=== PATIENT | female | born 1985 | race Caucasian/White ===

== ENCOUNTER 2016-09-08 13:04 | Emergency (ER) | payer OTHER ==
[~2016-09-08] VITALS: Ht 170.2 cm; Wt 91.6 kg
[~2016-09-08 13:04] MED LIST: ACULAR 3 ML3 ML OPH; BENZONATATE100 MG PO; CLEOCIN HCL300 MG PO; CONZIP100 MG PO; DOXYCYCLINE MO100 MG PO; FLEXERIL10 MG PO; GOOD SENSE IBU200 MG PO; HYDROCODONE/ACE1 TA1 PO; LIDODERM 5% PAT1 PAT TOP; LOTEMAX 10 ML10 ML OD; MEDROL DOSEPAK1 PAC PO; MEDROL4 M2 PO; METFORMIN HCL500 MG PO; MOBIC 15MG15 MG PO; MOTRIN800 MG PO; NAPROSYN 500 M500 MG PO; NAPROXEN500 MG PO; NORCO 325 MG-51 TAB PO; PERCOCET 325 MG1 TA2 PO; POLYTRIM O200 GTT/BO OPH; REGLAN10 M1 PO; TESSALON PERLE100 MG PO; TRAMADOL HCL50 M1 PO; TRAMADOL50 MG PO; TYLENOL325 MG PO; VICODIN5-300 PO; VITAMIN D50000 IU PO; ZITHROMAX Z-PA250 M1 PO; ZOFRAN ODT4 M1 SL; ZOFRAN4 M1 SL; [UNRECOGNIZED DRUG - OTHER] PO
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
[2016-09-08] MEDS ORDERED: CITRANATAL HAR1 EACH PO (14:06)
[2016-09-08] MEDS ORDERED: DICLEGIS DR 101 EACH PO (14:06)
[2016-09-08 15:00] VITALS: BP 140/67
== END 2016-09-08 15:00 ==
LOC: ERH 13:04
DX: O99.89 Other specified diseases and conditions complicating pregnancy, childbirth and the puerperium (principal); S39.012A Strain of muscle, fascia and tendon of lower back, initial encounter; O99.332 Smoking (tobacco) complicating pregnancy, second trimester; F17.210 Nicotine dependence, cigarettes, uncomplicated; Z3A.16 16 weeks gestation of pregnancy; V89.2XXA Person injured in unspecified motor-vehicle accident, traffic, initial encounter

== ENCOUNTER 2017-02-07 20:23 | Inpatient (IN) | payer OTHER ==
[~2017-02-07] VITALS: Ht 170.2 cm; Wt 157.9 kg
[~2017-02-07 20:23] MED LIST changes: +CITRANATAL HAR1 EACH PO; +DICLEGIS DR 101 EACH PO
[2017-02-07 21:49] LABS: ABSOLUTE BASOPHIL COUNT 0.1 /CUMM (0.0-0.2); ABSOLUTE EOSINOPHIL COUNT 0.2 /CUMM (0.0-0.7); ABSOLUTE GRANULOCYTE CT 11.5 /CUMM (1.4-6.5); ABSOLUTE LYMPH COUNT 3.2 /CUMM (1.2-3.4); ABSOLUTE MONOCYTE COUNT 1.3 /CUMM (0.10-0.60); BASOPHIL % 0.4 % (0.0-2.0); EOSINOPHIL % 1.1 % (0-5); GRANULOCYTE % 70.8 % (42.2-75.2); HEMATOCRIT 39.7 % (37-47); MEAN CORPUSCULAR HGB 28.6 PG (27.0-31.0); MEAN CORPUSCULAR HGB CONC 33.2 G/DL (33.0-37.0); MEAN CORPUSCULAR VOLUME 86.2 FL (81.0-99.0); PLATELET COUNT 277 /CUMM (130-400); RBC DISTRIBUTION WIDTH 14.1 % (11.5-14.5); WHITE BLOOD CELL COUNT 16.2 /CUMM (4.8-10.8)
--- NOTE | 2017-02-08 09:37 | History & Physical ---
General Information and HPI MD Statement: I have seen and personally examined EDE PARTIDA and documented this H&P. The patient is a 31 year old female at 37[] weeks and [] days gestation who presented with a chief complaint of []. Elevated blood pressure and elevated uric acid 7.4 history of cannabis use Allergies/Medications Allergies: Coded Allergies: Penicillins (Severe, DIFFICULTY BREATHING, SWELLING 10/27/15) grape (Severe, RASH 10/27/15) orange juice (Severe, RASH, DIFFICULTY BREATHING 10/27/15) codeine (RASH 10/27/15) Uncoded Allergies: QUINN SPRING SOAP (Intermediate, RASH 08/09/12) IVORY SOAP (Intermediate, RASH 08/09/12) Home Med list Doxylamine/Pyridoxine HCl (Diclegis Dr 10-10 MG Tablet) 10 MG-10 MG TABLET.DR 2 TAB PO QPM NAUSEA (Reported) Hydromorphone HCl 2 MG TABLET 2 MG PO Q3P PRN ABDOMINAL PAIN Ibuprofen 800 MG TABLET 800 MG PO Q6P PRN UTERINE CRAMPING Pnv59/Iron,Carb&Fum/FA/Dss/Dha (Citranatal [place] Capsule) 27 MG IRON-1 MG-50 MG-260 MG CAPSULE 1 CAP PO DAILY SUPPLEMENT (Reported) Past History clinical aide History : 2 Para: 0 Last Menstrual Period: 11/23/15 Past clinical aide History: TOP Medical History Neurological: NONE EENT: NONE Cardiovascular: hypertension, hyperlipidemia, heart murmur Respiratory: NONE Gastrointestinal: NONE Hepatic: NONE Renal: NONE Musculoskeletal: chronic back pain, CARPAL TUNNEL NERVE DAMAGE R HAND Psychiatric: NONE Endocrine: NONE Blood Disorders: NONE Cancer(s): NONE 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 No Contractions: None Patient for Induction? Yes Boss Score Boss Score Response Value Cervix Position: anterior 2 Cervix Consistency: soft 2 Cervix Effacement: >80% 3 Cervix Dilation: 1-2 cm 1 Total 8 Physical Exam: Morbid obese white female with glasses HEENT anicteric Lungs clear Heart S1 and S2 Abdomen soft port as well as skin estimated weight 7 pounds Extremities +3 edema reflexes normal Assessment/Plan Assessment/Plan: Assessment and assessment 37 week gestation suspected toxemia secondary to elevated blood pressures edema and elevated uric acid plan induction of labor with Pitocin if patients category 2 tracing improves otherwise section
--- NOTE | 2017-02-08 11:03 | PN- Obstetrical ---
Subjective Subjective: Complain of pain Objective Last 24 Hrs of Vital Signs/I&O Intake & Output 02/08 1600 02/08 0800 02/08 0000 Intake Total Output Total Balance Patient 348 lb Weight Physical Exam: Obese white female HEENT anicteric Abdomen soft obese Obstetric Exam Dilation (cm): 2 Effacement (%): 90 Station: 0 Membranes: AROM Fluid: clear Multiple Gestation? No Contractions: Every 8-10 minutes Assessment/Plan Assessment/Plan Assessment term elevated blood pressure elevated uric acid suspected toxemia substance abuse or cannabis nonreassuring heart tracing with late deceleration with single contraction Plan section
[2017-02-08 12:28] LABS: ABSOLUTE BASOPHIL COUNT 0.1 /CUMM (0.0-0.2); ABSOLUTE EOSINOPHIL COUNT 0.2 /CUMM (0.0-0.7); ABSOLUTE GRANULOCYTE CT 8.3 /CUMM (1.4-6.5); ABSOLUTE LYMPH COUNT 2.7 /CUMM (1.2-3.4); ABSOLUTE MONOCYTE COUNT 0.8 /CUMM (0.10-0.60); BASOPHIL % 0.4 % (0.0-2.0); EOSINOPHIL % 1.4 % (0-5); HEMATOCRIT 34.8 % (37-47); MEAN CORPUSCULAR HGB 28.8 PG (27.0-31.0); MEAN CORPUSCULAR HGB CONC 33.8 G/DL (33.0-37.0); MEAN CORPUSCULAR VOLUME 85.2 FL (81.0-99.0); MEAN PLATELET VOLUME 8.8 FL (7.4-10.4); PLATELET COUNT 242 /CUMM (130-400); RBC DISTRIBUTION WIDTH 13.9 % (11.5-14.5); RED BLOOD CELL CT 4.08 /CUMM (4.20-5.40)
[2017-02-08 14:08] VITALS: BP 137/85
[2017-02-09 06:49] LABS: BASOPHIL % 0.4 % (0.0-2.0); EOSINOPHIL % 1.4 % (0-5); GRANULOCYTE % 65.6 % (42.2-75.2); HEMATOCRIT 33.8 % (37-47); MEAN CORPUSCULAR HGB 28.9 PG (27.0-31.0); MEAN CORPUSCULAR HGB CONC 33.5 G/DL (33.0-37.0); MEAN CORPUSCULAR VOLUME 86.3 FL (81.0-99.0); MEAN PLATELET VOLUME 8.1 FL (7.4-10.4); PLATELET COUNT 206 /CUMM (130-400); RBC DISTRIBUTION WIDTH 14.6 % (11.5-14.5); RED BLOOD CELL CT 3.92 /CUMM (4.20-5.40)
[2017-02-09 06:50] LABS: ABSOLUTE BASOPHIL COUNT 0 /CUMM (0.0-0.2); ABSOLUTE EOSINOPHIL COUNT 0.2 /CUMM (0.0-0.7); ABSOLUTE GRANULOCYTE CT 7.2 /CUMM (1.4-6.5); ABSOLUTE LYMPH COUNT 2.8 /CUMM (1.2-3.4); ABSOLUTE MONOCYTE COUNT 0.8 /CUMM (0.10-0.60)
--- NOTE | 2017-02-09 09:29 | PN- Post Delivery/GYN ---
Subjective Subjective: NO FLATUS Objective Last 24 Hrs of Vital Signs/I&O Vital Signs Date Time Temp Pulse Resp B/P B/P Pulse O2 O2 Flow FiO2 Mean Ox Delivery Rate 02/08 1408 137/85 Physical Exam: PE OBESE WF ABD SOFT NT INCISION CDI EXT -EDEMA Assessment/Plan Assessment/Plan ASSESS S/PC/S PLAN ADVANE DIET INCREASE AMBULATION
[2017-02-09] MEDS ORDERED: IBUPROFEN800 M1 PO (16:20)
[2017-02-09] MEDS ORDERED: HYDROMORPHONE HC2 M1 PO (16:20)
--- NOTE | 2017-02-10 20:47 | PN- Post Delivery/GYN ---
Subjective Subjective: No complaints less pain than yesterday positive flatus Objective Last 24 Hrs of Vital Signs/I&O As per her paper chart vital signs stable Physical Exam: Obese white female HEENT anicteric Abdomen soft distention Incision clean dry and intact Fundus firm nontender Lochia minimal Extremities +1 edema Negative Homans Assessment/Plan Assessment/Plan Assessment is status post primary low flap transverse section suspected PIH nonreassuring heart tracing plan is for discharge in a.m.
== END 2017-02-11 17:05 | DRG 540 ==
LOC: CBCO 20:23 → GNO 22:55
PROVIDERS: ADMIT Specialist
PROC: 10D00Z1 Extraction of Products of Conception, Low, Open Approach (ICD-10-PCS; principal; 2017-02-08)
DX: O76 Abnormality in fetal heart rate and rhythm complicating labor and delivery (principal); O14.94 Unspecified pre-eclampsia, complicating childbirth; Z37.0 Single live birth; Z3A.37 37 weeks gestation of pregnancy; O99.323 Drug use complicating pregnancy, third trimester; O34.83 Maternal care for other abnormalities of pelvic organs, third trimester; N83.209 Unspecified ovarian cyst, unspecified side; O99.334 Smoking (tobacco) complicating childbirth; F17.210 Nicotine dependence, cigarettes, uncomplicated; O99.214 Obesity complicating childbirth; E66.01 Morbid (severe) obesity due to excess calories; Z68.43 Body mass index [BMI] 50.0-59.9, adult
CPT/HCPCS: GNOS; 36415; 80307; 81001; 82570; 87086; G0378; G0463; J0131; J0690; J1580; J1650; J1885; J7120

== ENCOUNTER 2017-02-16 02:32 | Inpatient (IN) | payer OTHER ==
[~2017-02-16] VITALS: Ht 170.2 cm; Wt 157.8 kg
[~2017-02-16 02:32] MED LIST changes: +HYDROMORPHONE HC2 M1 PO; +IBUPROFEN800 M1 PO
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
[2017-02-16 02:53] LABS: ABSOLUTE BASOPHIL COUNT 0.1 /CUMM (0.0-0.2); ABSOLUTE EOSINOPHIL COUNT 0.3 /CUMM (0.0-0.7); ABSOLUTE GRANULOCYTE CT 10.4 /CUMM (1.4-6.5); ABSOLUTE LYMPH COUNT 2.5 /CUMM (1.2-3.4); BASOPHIL % 0.4 % (0.0-2.0); EOSINOPHIL % 1.8 % (0-5); GRANULOCYTE % 73.4 % (42.2-75.2); HEMATOCRIT 32.9 % (37-47); MEAN CORPUSCULAR HGB 28.9 PG (27.0-31.0); MEAN CORPUSCULAR HGB CONC 33.6 G/DL (33.0-37.0); MEAN CORPUSCULAR VOLUME 86.1 FL (81.0-99.0); MEAN PLATELET VOLUME 6.6 FL (7.4-10.4); RBC DISTRIBUTION WIDTH 14.1 % (11.5-14.5); RED BLOOD CELL CT 3.82 /CUMM (4.20-5.40); WHITE BLOOD CELL COUNT 14.2 /CUMM (4.8-10.8)
[2017-02-16 02:54] LABS: PLATELET COUNT 409 /CUMM (130-400)
--- NOTE | 2017-02-16 03:14 | NUR ---
MICHAEL FROM HOME. PT HAD APPROX 1 WEEK AGO AND HAD AYALA REMOVED ON MONDAY. TODAY HAD GOTTEN UP AND NOTICED A GUSH OF WATER AND BLOOD FROM INCISION. PT WITH SEROSANGIOUS DRAINAGE THAT IS FOUL SMELLING, YELLOW PUS ALSO NOTED.
--- NOTE | 2017-02-16 04:57 | NUR ---
PATIENT AWOKE FROM SOUND SLEEP REQUESTING PAIN MEDICATION. MORPHINE ORDERED BY MD, ON ATTEMPT TO ADMINISTER, PATIENT NOTED TO BE SNORING. AWOKE PATIENT FROM SLEEP TO OBTAIN VS. AFTER VS COMPLETE, PATIENT STATES "COVER ME WITH A BLANKET." ADDITIONAL BLANKET PLACED OVER PATIENT. PATIENT IMMEDIATLEY RETURNS TO SLEEP, SNORING. MORPHINE HELD AT THIS TIME.
--- NOTE | 2017-02-16 05:15 | NUR ---
PATIENT CONTINUES TO SLEEP AT THIS TIME, SNORING LOUDLY. REGULAR RESPIRATIONS NOTED.
--- NOTE | 2017-02-16 05:19 | NUR ---
RUDY SMITH AWARE THAT MORPHINE WAS NOT ADMINISTERED D/T PATIENT CONTINUES TO SLEEP AT THIS TIME. ORDER REMAINS IN PLACE IF PATIENT WAKES AND C/O PAIN.
--- NOTE | 2017-02-16 05:19 | NUR ---
REPORT CALLED TO SARAH GRANT ON GM.
--- NOTE | 2017-02-16 05:25 | NUR ---
Emergency Dept UC Admit Note: To be admitted to [facility] by DR. ORA ANNE with WOUND INFECTION as the diagnosis, to [address]. Nursing Tin Tie Machine Operator Automatic and admitting notified 02/16/17 at 0335
[2017-02-16 06:40] VITALS: BP 144/84
--- NOTE | 2017-02-16 07:03 | NUR ---
PATIENT ARRIVED ON UNIT AT 0533 VIA STRETCHER. PATIENT A+Ox3 AND ON RA, ACCOMPANIED BY KAILEE. PATIENT ORIENTED TO CALL [facility]ON, ROOM, STAFF, SURROUNDINGS. WOUND TO TRANSVERSE ABDOMEN ASSESSED. ADMISSION ASSESSMENT COMPLETE. PATIENT MEDICATED WITH PAIN MEDICATION PER EMAR. NO FURTHER COMPLAINTS AT THIS TIME.
--- NOTE | 2017-02-16 09:27 | History & Physical Pre-Op ---
General Information and HPI MD Statement: I have seen and personally examined EDE PARTIDA and documented this H&P. The patient is a 31 year old F who presented with a patient stated chief complaint of pain and leaking incision []. Source of Information: patient History of Present Illness: 1-year-old 2 para 1011 status post section on emergent basis 7 days ago who presents to the emergency room last night after staple removal in the childbirth Center with a left sided pain followed by drainage of liquid. Patient was seen by Dr. Gross leaking pus noted from the incision patient started on clindamycin she has an allergy to penicillin. Patient's white count was 14 preoperatively for the white count had been 16 without shift. Patient denies any change in bowel movements urinary symptoms heavy vaginal bleeding. Allergies/Medications Allergies: Coded Allergies: Penicillins (Severe, DIFFICULTY BREATHING, SWELLING 10/27/15) grape (Severe, RASH 10/27/15) orange juice (Severe, RASH, DIFFICULTY BREATHING 10/27/15) codeine (RASH 10/27/15) Uncoded Allergies: [place] SPRING SOAP (Intermediate, RASH 08/09/12) IVORY SOAP (Intermediate, RASH 08/09/12) Home Med list Hydromorphone HCl 2 MG TABLET 2 MG PO Q3P PRN ABDOMINAL PAIN Ibuprofen 800 MG TABLET 800 MG PO Q6P PRN UTERINE CRAMPING Pnv59/Iron,Carb&Fum/FA/Dss/Dha (Citranatal [place] Capsule) 27 MG IRON-1 MG-50 MG-260 MG CAPSULE 1 CAP PO DAILY SUPPLEMENT (Reported) Past History Medical History Blood Transfusion Hx: No Neurological: NONE EENT: NONE Cardiovascular: hypertension, hyperlipidemia, heart murmur Respiratory: NONE Gastrointestinal: NONE Hepatic: NONE Renal: NONE Musculoskeletal: chronic back pain, CARPAL TUNNEL NERVE DAMAGE R HAND Psychiatric: NONE Endocrine: NONE Blood Disorders: NONE Cancer(s): NONE 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 Home Services at Home None Smoking Status: Current Everyday Smoker ETOH Use: denies use Illicit Drug Use: denies illicit drug use Review of Systems Review of Systems: Patient denies any change in bowel movements urination patient is continuously congested Exam & Diagnostic Data Last 24 Hrs of Vital Signs/I&O Vital Signs Date Time Temp Pulse Resp B/P B/P Pulse O2 O2 Flow FiO2 Mean Ox Delivery Rate 02/16 0640 97.5 84 20 144/84 99 Room Air 02/16 0453 96.7 92 18 157/79 97 Room Air 02/16 0235 97.8 97 20 103/52 97 Room Air Intake & Output 02/16 1600 02/16 0800 02/16 0000 Intake Total 1200 Output Total Balance 1200 Intake, IV 1100 Intake, Oral 100 Patient 348 lb Weight Weight Reported by Patient Measurement Method Physical Exam: Morbidly obese white female classes and acne HEENT glasses anicteric Lungs clear Breasts soft without masses Abdomen soft obese I approximately a 4 cm opening in her section is Pfannenstiel with pus approximately 50 mL Fundus firm nontender Extremities negative edema negative Homans Assessment/Plan Assessment/Plan: Assessment morbidly obese patient status post emergent section with wound infection and drainage Plan continue clindamycin patient received 1 dose of Bactrim check and follow CB C wound cleanings consult with Parrish Montano MD from ID As Ranked By This Provider Problem List: 1. CELLULITIS/ABSCESS
--- NOTE | 2017-02-16 12:46 | Cons- Infect Disease ---
General Information and HPI Consulting Request Date of Consult: 02/16/17 Requested By: ORA ANNE MD Reason for Consult: Surgical site infection Source of Information: patient, old records History of Present Illness: This is a 31-year-old woman status post 8 days prior to admission after distress, with Clindamycin and Gentamicin prophylaxis, discharged 3 days postop, with removal of kemi 2 days later, with discomfort and induration around the incision since surgery, admitted early this morning after presenting to the emergency room after she noted a significant amount of foul- smelling serosanguineous drainage from her incision with no history of fevers or chills. On admission she was afebrile. Laboratory data revealed a white blood cell count of 14,000, BUN/creatinine 15 and 0.7, with normal liver enzymes. She was given IV Clindamycin and po Bactrim in the emergency room and continued on Clindamycin. Presently she does note discomfort around her incision. Allergies/Medications Allergies: Coded Allergies: Penicillins (Severe, DIFFICULTY BREATHING, SWELLING 10/27/15) grape (Severe, RASH 10/27/15) orange juice (Severe, RASH, DIFFICULTY BREATHING 10/27/15) codeine (RASH 10/27/15) Uncoded Allergies: QUINN SPRING SOAP (Intermediate, RASH 08/09/12) IVORY SOAP (Intermediate, RASH 08/09/12) Home Med List: Hydromorphone HCl 2 MG TABLET 2 MG PO Q3P PRN ABDOMINAL PAIN Ibuprofen 800 MG TABLET 800 MG PO Q6P PRN UTERINE CRAMPING Pnv59/Iron,Carb&Fum/FA/Dss/Dha (Citranatal Calera Capsule) 27 MG IRON-1 MG-50 MG-260 MG CAPSULE 1 CAP PO DAILY SUPPLEMENT (Reported) Past History Travel History Traveled to [place] past 21 day No Medical History Blood Transfusion Hx: No Neurological: NONE EENT: NONE Cardiovascular: hypertension, hyperlipidemia, heart murmur Respiratory: NONE Gastrointestinal: NONE Hepatic: NONE Renal: NONE Musculoskeletal: chronic back pain, CARPAL TUNNEL NERVE DAMAGE R HAND Psychiatric: NONE Endocrine: obesity Blood Disorders: NONE Cancer(s): NONE [employer]/Reproductive: OVARIAN CYSTS History of MRSA: Yes History of VRE: No History of CDIFF: No Isolation History: Contact Surgical History Surgical History: Psychosocial History Where Do You Live? Home Services at Home: None Smoking Status: Current Everyday Smoker ETOH Use: denies use Illicit Drug Use: denies illicit drug use Review of Systems Review of Systems All Other Systems: Reviewed and Negative Exam & Diagnostic Data Last 24 Hrs of Vital Signs/I&O Vital Signs Date Time Temp Pulse Resp B/P B/P Pulse O2 O2 Flow FiO2 Mean Ox Delivery Rate 02/16 0640 97.5 84 20 144/84 99 Room Air 02/16 0453 96.7 92 18 157/79 97 Room Air 02/16 0235 97.8 97 20 103/52 97 Room Air Intake & Output 02/16 1600 02/16 0800 02/16 0000 Intake Total 1200 Output Total Balance 1200 Intake, IV 1100 Intake, Oral 100 Patient 348 lb Weight Weight Reported by Patient Measurement Method Physical Exam Other Physical Findings: She is awake and alert in no acute distress. She is afebrile. Skin reveals no rash. HEENT exam is negative. Neck is supple with no adenopathy. Lungs are clear. Heart regular rhythm with no murmur. Abdomen is obese, soft, lower abdominal incision with purulent drainage expressed on palpation, with significant induration and tenderness from the midline to the left lower quadrant, with no erythema; positive bowel sounds. Back no CVA tenderness. Extremities no cyanosis, clubbing or edema. Neuro is without focality. Last 24 Hours of Lab Results: Laboratory Tests 02/16 0245 Chemistry Sodium (137 - 145 mmol/L) 138 Potassium (3.5 - 5.1 mmol/L) 3.9 Chloride (98 - 107 mmol/L) 104 Carbon Dioxide (22 - 30 mmol/L) 24 Anion Gap (5 - 16) 11 BUN (7 - 17 mg/dL) 15 Creatinine (0.5 - 1.0 mg/dL) 0.7 Estimated GFR (>60 ml/min) > 60 BUN/Creatinine Ratio (7 - 25 %) 21.4 Glucose (65 - 99 mg/dL) 91 Calcium (8.4 - 10.2 mg/dL) 8.5 Total Bilirubin (0.2 - 1.3 mg/dL) 0.4 AST (14 - 36 U/L) 17 ALT (9 - 52 U/L) 25 Alkaline Phosphatase (<127 U/L) 90 Total Protein (6.3 - 8.2 g/dL) 6.2 L Albumin (3.5 - 5.0 g/dL) 2.9 L Globulin (1.9 - 4.2 gm/dL) 3.3 Albumin/Globulin Ratio (1.1 - 2.2 %) 0.9 L Hematology CBC w Diff NO MAN DIFF REQ WBC (4.8 - 10.8 /CUMM) 14.2 H RBC (4.20 - 5.40 /CUMM) 3.82 L Hgb (12.0 - 16.0 G/DL) 11.1 L Hct (37 - 47 %) 32.9 L MCV (81.0 - 99.0 FL) 86.1 MCH (27.0 - 31.0 PG) 28.9 RDW (11.5 - 14.5 %) 14.1 Plt Count (130 - 400 /CUMM) 409 H MPV (7.4 - 10.4 FL) 6.6 L Gran % (42.2 - 75.2 %) 73.4 Lymphocytes % (20.5 - 51.1 %) 17.6 L Monocytes % (1.7 - 9.3 %) 6.8 Eosinophils % (0 - 5 %) 1.8 Basophils % (0.0 - 2.0 %) 0.4 Absolute Granulocytes (1.4 - 6.5 /CUMM) 10.4 H Absolute Lymphocytes (1.2 - 3.4 /CUMM) 2.5 Absolute Monocytes (0.10 - 0.60 /CUMM) 1.0 H Absolute Eosinophils (0.0 - 0.7 /CUMM) 0.3 Absolute Basophils (0.0 - 0.2 /CUMM) 0.1 PUBS MCHC (33.0 - 37.0 G/DL) 33.6 Last 24 Hours of [place] Results: Blood cultures February 16 pending Assessment/Plan Assessment/Plan Impression: This is a 31-year-old woman status post 8 days prior to admission admitted early this morning with several days of lower abdominal discomfort and induration and with the acute onset of serosanguineous drainage from the incision with no fevers or chills found on admission to be afebrile with an elevated white blood cell count and with purulent drainage from the incision. She appears to have a surgical site infection and, given the significant amount of induration still present, I suspect that she may have a drainable collection. Imaging, for example with a CT scan of the abdomen and pelvis, may be helpful in determining the extent of this infection. With regard to her antibiotics, she reports a remote Penicillin allergy (hives and respiratory distress as a child) and, in the absence of any further history, it may be necessary to avoid beta lactams. Suggestion: 1. Obtain a CT of the abdomen and pelvis with IV contrast (she is not breast- feeding) 2. Would attempt to obtain a culture of her drainage in a sterile fashion 3. Continue Clindamycin 900 mg IV every 8 hours pending above Consult Acknowledgment - Thank you for your consult request.
[2017-02-16 14:47] VITALS: BP 120/66
--- NOTE | 2017-02-16 16:58 | CT SCAN REPORT ---
EXAMINATION: CT ABDOMEN AND PELVIS WITH CONTRAST CLINICAL INFORMATION: Purulent discharge from scar. COMPARISON: 06/02/2016 TECHNIQUE: Multidetector volumetric imaging was performed of the abdomen and pelvis before and after the IV administration of 94 mL of Optiray 320 intravenous contrast. Sagittal and coronal reformatted images were obtained on the technologist's workstation. DLP: 1627 mGy-cm FINDINGS: There are postsurgical changes involving the anterior abdominal wall consistent with a low anterior transverse incision with [id number] soft tissue stranding and edema along with skin thickening with multiple small foci of gas identified anterior abdominal most notably laterally towards the left side without evidence of a drainable fluid collection to suggest an abscess. Findings are likely iatrogenic and related to the patient's recent surgery, the timing of which I am not provided. There is soft tissue thickening in the umbilicus region as well with surrounding soft tissue stranding and no focal fluid collection. This is etiology indeterminate, was there also incision in this region? The uterus has the appearance of an evolving state without evidence of a focal fluid collection on this noncontrast examination. A small amount of fluid is suggested in the cul-de-sac versus involuting tissues. Adnexal regions appear unremarkable. The spleen is enlarged measuring up to 18 cm craniocaudal dimension unchanged. The lung bases, liver, pancreas, gallbladder, and biliary tree appear unremarkable. Kidneys and adrenal glands appear unremarkable. Urinary bladder under distended limiting evaluation. There is no intraperitoneal free air. Imaging through the retroperitoneum appears unremarkable. No aggressive osseous lesions. No abdominal wall hernias are seen. IMPRESSION: 1. Postoperative changes with moderate soft tissue stranding and edema which may represent an evolving infectious process given the patient's history. Clinical correlation is recommended. 2. Probable evolving involutional changes of a uterus. This appearance should be correlated with the timing of the previous procedure. 3. No intraperitoneal fluid collection is identified to suggest an abscess.
--- NOTE | 2017-02-16 18:36 | NUR ---
PT C/O INCREASED PAIN AND CRAMPING TO LOWER ABD. MD GARCIA NOTIFIED. TELEPHONE ORDER IV TORADOL 30MG ONE TIME DOSE FAXED TO PHARMACY. PT UPDATED ON POC.
[2017-02-16 22:34] VITALS: BP 124/60
[2017-02-17 06:59] VITALS: BP 128/76
[2017-02-17 08:17] LABS: ABSOLUTE BASOPHIL COUNT 0 /CUMM (0.0-0.2); ABSOLUTE EOSINOPHIL COUNT 0.2 /CUMM (0.0-0.7); ABSOLUTE GRANULOCYTE CT 6.5 /CUMM (1.4-6.5); ABSOLUTE LYMPH COUNT 2.1 /CUMM (1.2-3.4); ABSOLUTE MONOCYTE COUNT 0.8 /CUMM (0.10-0.60); BASOPHIL % 0.4 % (0.0-2.0); EOSINOPHIL % 1.6 % (0-5); GRANULOCYTE % 67.6 % (42.2-75.2); MEAN CORPUSCULAR HGB 28.7 PG (27.0-31.0); MEAN CORPUSCULAR VOLUME 87.1 FL (81.0-99.0); MEAN PLATELET VOLUME 6.9 FL (7.4-10.4); PLATELET COUNT 334 /CUMM (130-400); RBC DISTRIBUTION WIDTH 14.4 % (11.5-14.5); RED BLOOD CELL CT 3.34 /CUMM (4.20-5.40); WHITE BLOOD CELL COUNT 9.6 /CUMM (4.8-10.8)
--- NOTE | 2017-02-17 09:17 | PN- Post Delivery/GYN ---
Subjective Subjective: WHEN CAN I GO HOME Objective Last 24 Hrs of Vital Signs/I&O Vital Signs Date Time Temp Pulse Resp B/P B/P Pulse O2 O2 Flow FiO2 Mean Ox Delivery Rate 02/17 0659 98.7 72 18 128/76 98 02/16 2234 98.1 69 20 124/60 96 Room Air 02/16 1447 97.2 60 20 120/66 94 Intake & Output 02/17 1600 02/17 0800 02/17 0000 Intake Total 700 Output Total Balance 700 Intake, Oral 700 Physical Exam: OBESE WF IN BED ABD SOFT TENDER AT UMBILICUS SKIN PINK WITH INDURATION INCISION WITH PUS AND PINK GRANULATION TISSUE EXT - HOMANS Assessment/Plan Assessment/Plan ASSESS S/P C/S WOUND INFECTION WITH NEGATIVE CAT SCAN HISTORY OF SUBSTANCE ABUSE PLAN CHECK CULTURE VALIDITY POSSIBLE HOME CARE IN LIGHT OF INFANT AT HOME
--- NOTE | 2017-02-17 12:14 | PN- Infect Dx ---
Subjective Subjective: Afebrile. She notes no improvement in her lower abdominal pain. Objective Last 24 Hrs of Vital Signs/I&O Vital Signs Date Time Temp Pulse Resp B/P B/P Pulse O2 O2 Flow FiO2 Mean Ox Delivery Rate 02/17 0659 98.7 72 18 128/76 98 02/17 0000 96 Room Air 02/16 2234 98.1 69 20 124/60 96 Room Air 02/16 1447 97.2 60 20 120/66 94 Intake & Output 02/17 1600 02/17 0800 02/17 0000 Intake Total 150 700 Output Total Balance 150 700 Intake, IV 0 Intake, Oral 150 700 Number 0 Bowel Movements Physical Exam Other Physical Findings: She appears in mild distress secondary to lower abdominal discomfort Abdomen lower abdominal incision with purulent drainage expressed on minimal palpation, with induration and tenderness particularly over the left side of her incision, with minimal erythema Results Last 24 Hours of Lab Results: Laboratory Tests 02/17 630 Hematology CBC w Diff NO MAN DIFF REQ WBC (4.8 - 10.8 /CUMM) 9.6 RBC (4.20 - 5.40 /CUMM) 3.34 L Hgb (12.0 - 16.0 G/DL) 9.6 L Hct (37 - 47 %) 29.0 L MCV (81.0 - 99.0 FL) 87.1 MCH (27.0 - 31.0 PG) 28.7 RDW (11.5 - 14.5 %) 14.4 Plt Count (130 - 400 /CUMM) 334 MPV (7.4 - 10.4 FL) 6.9 L Gran % (42.2 - 75.2 %) 67.6 Lymphocytes % (20.5 - 51.1 %) 22.2 Monocytes % (1.7 - 9.3 %) 8.2 Eosinophils % (0 - 5 %) 1.6 Basophils % (0.0 - 2.0 %) 0.4 Absolute Granulocytes (1.4 - 6.5 /CUMM) 6.5 Absolute Lymphocytes (1.2 - 3.4 /CUMM) 2.1 Absolute Monocytes (0.10 - 0.60 /CUMM) 0.8 H Absolute Eosinophils (0.0 - 0.7 /CUMM) 0.2 Absolute Basophils (0.0 - 0.2 /CUMM) 0 PUBS MCHC (33.0 - 37.0 G/DL) 33.0 Last 24 Hours of Perry Results: Superficial culture of the drainage February 16 positive for mixed eliseo with light growth of gram-positive cocci, with gram stain revealing moderate white blood cells, many gram-positive cocci and few gram-negative rods Recent Imaging Studies: CT of the abdomen and pelvis February 16 reveals postsurgical changes involving the anterior abdominal wall with mild to moderate soft tissue stranding and edema along with skin thickening with multiple small foci of gas most notably laterally towards the left side with no evidence of a drainable fluid collection ; soft tissue thickening in the umbilicus with surrounding soft tissue stranding with no focal fluid collection; splenomegaly Assessment/Plan Impression: Persistent lower abdominal discomfort, induration and purulent drainage from the incision though she remains afebrile and white blood cell count has decreased on Clindamycin Day 2 of treatment for a surgical site infection identified 8 days status post . Her CT scan was negative for any drainable collection but, given the persistent drainage, feel that her incision should be opened further. Her superficial culture is growing several organisms, some of which may represent skin contamination, but her antibiotic regimen can be adjusted pending final cultures. Suggestion: 1. Would consider opening her incision further to provide more effective drainage 2. Follow-up recent culture 3. Discontinue Clindamycin 4. Begin Meropenem 1 g IV every 8 hours pending above
[2017-02-17 15:20] VITALS: BP 120/70
[2017-02-17 22:00] VITALS: BP 120/70
[2017-02-18 07:30] VITALS: BP 136/80
--- NOTE | 2017-02-18 11:07 | PN- Obstetrical ---
Subjective Subjective: C/O SHOULDER PAIN NOT WITH INSPIRATION RELEAVED BY HEAT Objective Last 24 Hrs of Vital Signs/I&O Vital Signs Date Time Temp Pulse Resp B/P B/P Pulse O2 O2 Flow FiO2 Mean Ox Delivery Rate 02/18 730 97.5 68 20 136/80 97 Room Air 02/17 2200 98.4 83 20 120/70 97 Room Air 02/17 1520 98.3 79 20 120/70 97 Intake & Output 02/18 1600 02/18 0800 02/18 0000 Intake Total 600 450 Output Total Balance 600 450 Intake, Oral 600 450 Physical Exam: PE OBESE WF IN BED ABD SOFT LESS PAIN OVER IN CISION LESS DRAINAGE EXT - [facility] Exam Dilation (cm): 0 Effacement (%): 0 Station: 0 Membranes: unknown Fluid: unknown Multiple Gestation? No Contractions: NONE Assessment/Plan Assessment/Plan ASSESS S/P C/S WOUND INFECTION IMPROVING LESS DRAINANAGE AND MOOKIE DECREASED WBC AT THIS TIME NO PLAN NO OPEN INCISION PLAN CONT IRRIGATION POSSIBLE PACKING AND HOME CARE ON MONDAY
[2017-02-18 14:14] VITALS: BP 120/62
[2017-02-18 22:30] VITALS: BP 170/92
[2017-02-19 03:12] VITALS: BP 170/80
[2017-02-19 06:40] VITALS: BP 140/80
--- NOTE | 2017-02-19 08:34 | PN- Infect Dx ---
Subjective Subjective: Afebrile. She feels much improved. Objective Last 24 Hrs of Vital Signs/I&O Vital Signs Date Time Temp Pulse Resp B/P B/P Pulse O2 O2 Flow FiO2 Mean Ox Delivery Rate 02/19 0640 97.6 72 20 140/80 98 Room Air 02/19 0312 170/80 02/18 2230 98.7 71 20 170/92 100 Room Air 02/18 1414 98.5 77 20 120/62 94 Intake & Output 02/19 1600 02/19 0800 02/19 0000 Intake Total 600 500 Output Total Balance 600 500 Intake, Oral 600 500 Physical Exam Other Physical Findings: She appears comfortable in no acute distress Abdomen incision closing, with no drainage, markedly decreased tenderness and no erythema Results Last 24 Hours of Lab Results: No labs from today Last 24 Hours of Perry Results: Superficial culture from her incisional drainage February 16 positive for Enterococcus sensitive to Ampicillin and possible anaerobes/gram negative rods Assessment/Plan Impression: Improved with no further drainage and with decreased inflammation surrounding her incision on Meropenem Day 4 of treatment for a surgical site infection following a , with a superficial culture growing several organisms including Enterococcus. Given her Penicillin allergy there is no oral regimen she can be given for the Enterococcus; therefore it may be necessary to continue her on IV antibiotics until she has completed an appropriate course of treatment. Suggestion: 1. Follow-up final culture 2. Continue Meropenem
--- NOTE | 2017-02-19 12:03 | PN- Post Delivery/GYN ---
Subjective Subjective: NO SHOULDER PAIN INCISION PAIN ONLY ASORENESS Objective Last 24 Hrs of Vital Signs/I&O Vital Signs Date Time Temp Pulse Resp B/P B/P Pulse O2 O2 Flow FiO2 Mean Ox Delivery Rate 02/19 0640 97.6 72 20 140/80 98 Room Air 02/19 0312 170/80 02/18 2230 98.7 71 20 170/92 100 Room Air 02/18 1414 98.5 77 20 120/62 94 Intake & Output 02/19 1600 02/19 0800 02/19 0000 Intake Total 600 500 Output Total Balance 600 500 Intake, Oral 600 500 Physical Exam: PE OBESE WF EATING IN ACHAIR ABD SOFT NT INCISION DECREASED OPENING EXT - EDEMA Assessment/Plan Assessment/Plan ASSESS S/P C/S WOUND INFECTION PLAN D/C IN AM WITH HOME CARE
[2017-02-19 13:59] VITALS: BP 140/80
[2017-02-19 22:29] VITALS: BP 132/84
[2017-02-20 06:52] VITALS: BP 124/76
--- NOTE | 2017-02-20 11:54 | PN- Post Delivery/GYN ---
Subjective Subjective: SAD ABOUT HOSPITALIZATION Objective Last 24 Hrs of Vital Signs/I&O Vital Signs Date Time Temp Pulse Resp B/P B/P Pulse O2 O2 Flow FiO2 Mean Ox Delivery Rate 02/20 0652 97.7 82 18 124/76 98 Room Air 02/19 2229 97.8 67 20 132/84 100 Room Air 02/19 1359 98.2 77 20 140/80 96 Intake & Output 02/20 1600 02/20 0800 02/20 0000 Intake Total 500 600 Output Total Balance 500 600 Intake, Oral 500 600 Physical Exam: PE OBESE WF IN NAD ABD SOFT NT INCISION WITH SOME DRAINAGE Assessment/Plan Assessment/Plan ASSESSS/P C/S WOUND INFECTION PLAN D/ARYA AM MUST FINISH ABX IV
[2017-02-20 14:29] VITALS: BP 120/80
--- NOTE | 2017-02-20 15:19 | PN- Infect Dx ---
Subjective Subjective: Afebrile. She feels well with no complaints Objective Last 24 Hrs of Vital Signs/I&O Vital Signs Date Time Temp Pulse Resp B/P B/P Pulse O2 O2 Flow FiO2 Mean Ox Delivery Rate 02/20 1429 98.3 88 20 120/80 98 02/20 0652 97.7 82 18 124/76 98 Room Air 02/19 2229 97.8 67 20 132/84 100 Room Air Intake & Output 02/20 1600 02/20 0800 02/20 0000 Intake Total 500 600 Output Total Balance 500 600 Intake, Oral 500 600 Physical Exam Other Physical Findings: She appears comfortable in no acute distress Abdomen incision clean with no erythema or drainage; induration above the incision persists but minimally tender to palpation Results Last 24 Hours of Lab Results: No recent labs Last 24 Hours of [place] Results: Superficial culture of her incisional drainage February 16 positive for Enterococcus and probable Prevotella Assessment/Plan Impression: Improved with no further drainage and with decreased inflammation surrounding her incision now Day 4 of Meropenem for a surgical site infection following a C- section, with a superficial culture growing Enterococcus and anaerobes. Suggestion: 1. Would advise referral to an door liner helper as an outpatient for Penicillin allergy testing 2. Continue Meropenem to complete at least a 5 day course of treatment
[2017-02-20 22:34] VITALS: BP 156/86
[2017-02-21 06:00] VITALS: BP 130/80
== END 2017-02-21 14:15 | disposition home health service (06) | DRG 561 ==
LOC: ERH 02:32 → 2NA 03:51 → ERHI 03:51 → ENRESERV 04:43 → 2NA 05:33 → ENPENDDIS 02-21 12:44 → 2NA 02-21 14:15
PROVIDERS: Pediatrics; ADMIT Specialist
DX: O86.0 Infection of obstetric surgical wound (principal); Z68.43 Body mass index [BMI] 50.0-59.9, adult; I10 Essential (primary) hypertension; E66.01 Morbid (severe) obesity due to excess calories; E78.5 Hyperlipidemia, unspecified; B95.4 Other streptococcus as the cause of diseases classified elsewhere; Y83.8 Other surgical procedures as the cause of abnormal reaction of the patient, or of later complication, without mention of misadventure at the time of the procedure; F17.200 Nicotine dependence, unspecified, uncomplicated
CPT/HCPCS: 2NASP; 87070; 87075; 87205; 36415; 74177; 87040; 87147; 96374; 96375; J1200; J1650; J1885; J2185

== ENCOUNTER 2018-01-27 13:59 | Emergency (ER) | payer OTHER ==
[~2018-01-27] VITALS: Ht 170.2 cm; Wt 136.1 kg
--- NOTE | 2018-01-27 16:10 | ED GENERAL ADULT ---
History of Present Illness General Chief Complaint: General Adult Stated Complaint: PAIN ON LOWER LEFT SIDE Source: patient Exam Limitations: no limitations Vital Signs & Intake/Output Vital Signs & Intake/Output Vital Signs Date Time Temp Pulse Resp B/P B/P Pulse O2 O2 Flow FiO2 Mean Ox Delivery Rate 01/27 1415 98.0 77 16 148/96 98 Room Air Allergies Coded Allergies: Penicillins (Severe, DIFFICULTY BREATHING, SWELLING 10/27/15) grape (Severe, RASH 10/27/15) orange juice (Severe, RASH, DIFFICULTY BREATHING 10/27/15) codeine (RASH 10/27/15) Uncoded Allergies: [place] SPRING SOAP (Intermediate, RASH 08/09/12) IVORY SOAP (Intermediate, RASH 08/09/12) Reconcile Medications Hydromorphone HCl 2 MG TABLET 2 MG PO Q3P PRN ABDOMINAL PAIN Ibuprofen 800 MG TABLET 800 MG PO Q6P PRN UTERINE CRAMPING Meloxicam (Mobic) 15 MG TABLET 1 TAB PO DAILY PRN pain Pnv59/Iron,Carb&Fum/FA/Dss/Dha (Citranatal [place] Capsule) 27 MG IRON-1 MG-50 MG-260 MG CAPSULE 1 CAP PO DAILY SUPPLEMENT (Reported) Triage Note: 32F REPORTS LEFT RIB CAGE AND LEFT SIDE PAIN. DENIES INJURY OR TRAUMA. WENT TO [facility] AND DIAGNOSED HER WITH STOMACH FLU BECAUSE SHE WAS VOMITING. DENIES N/V/D OR FEVERS AT PRESENT. DENIES SYMPTOMS. PAIN IS WORSE W DEEP BREATHS Triage Nurses Notes Reviewed? yes Onset: Gradual Duration: week(s): Timing: recent history Injury Environment: home Severity: moderate : No Patient currently breastfeeds: No HPI: 32yo female with hx of HTN presents to ED complaining of left ribcage pain x 1 week. Patient describes pain as left lateral rib cage, sharp, pleuritic, worse with direct palpation. Patient reports episodes of nausea and vomiting 1 week ago, she was seen at [facility] and diagnosed with "stomach flu". Her GI symptoms have resolved however pleuritic pain has not. She has been taking ibuprofen without relief of her symptoms. Patient denies chest pain, dyspnea, sick contact, trauma. Past History Travel History Traveled to [place] past 21 day No Medical History Any Pertinent Medical History? see below for history Neurological: NONE EENT: NONE Cardiovascular: hypertension, hyperlipidemia, heart murmur Respiratory: NONE Gastrointestinal: NONE Hepatic: NONE Renal: NONE Musculoskeletal: chronic back pain, CARPAL TUNNEL NERVE DAMAGE R HAND Psychiatric: NONE Endocrine: obesity Blood Disorders: NONE Cancer(s): NONE [employer] SU[employer]OR/Reproductive: OVARIAN CYSTS History of MRSA: Yes History of VRE: No History of CDIFF: No Surgical History Surgical History: Psychosocial History Who do you live with Family Services at Home None What is your primary language Amharic Tobacco Use: Current Daily Use Daily Tobacco Use Amount/Type: => 5 Cigarettes daily Family History Hx Contributory? No Review of Systems Review of Systems Constitutional: Reports: no symptoms. EENTM: Reports: no symptoms. Respiratory: Reports: see HPI. Cardiovascular: Reports: no symptoms. GI: Reports: see HPI. Genitourinary: Reports: no symptoms. Musculoskeletal: Reports: no symptoms. Skin: Reports: no symptoms. Neurological/Psychological: Reports: no symptoms. Hematologic/Endocrine: Reports: no symptoms. Immunologic/Allergic: Reports: no symptoms. All Other Systems: Reviewed and Negative Physical Exam Physical Exam General Appearance: well developed/nourished, no apparent distress, alert, awake Head: atraumatic, normal appearance Eyes: Bilateral: normal appearance. Ears, Nose, Throat: hearing grossly normal, no LAD Neck: normal inspection, supple, full range of motion Respiratory: normal breath sounds, no respiratory distress, lungs clear, left lateral ribcage tenderness, no ecchymosis Cardiovascular: regular rate/rhythm Gastrointestinal: normal bowel sounds, soft, no organomegaly, mild LUQ tenderness Back: normal inspection, normal range of motion Extremities: normal inspection, normal range of motion Neurologic/Psych: awake, alert, oriented x 3 Skin: intact, normal color, warm/dry Core Measures ACS in differential dx? No CVA/TIA Diagnosis: No Sepsis Present: No Sepsis Focused Exam Completed? No Progress Differential Diagnoses I considered the following diagnoses in my evaluation of the patient: [mono, splenomegaly, splenic injury, costocondritis, pleurisy, PE] Plan of Care: Orders Procedure Date/time Status MONOSPOT 01/27 1610 Complete URINE 01/27 1449 Complete URINALYSIS 01/27 1449 Complete Laboratory Tests 01/27/18 1636: Infectious [place] Titer NEGATIVE 01/27/18 1450: Urine Color YEL, Urine Clarity HAZY H, Urine pH 6.0, Ur Specific [place] 1.025, Urine Protein NEG, Urine Ketones TRACE H, Urine Nitrite NEG, Urine Bilirubin NEG, Urine Urobilinogen 0.2, Ur Leukocyte Esterase NEG, Ur Microscopic SEDIMENT EXAMINED, Urine RBC RARE, Ur Epithelial Cells RARE, Urine Bacteria RARE H, Urine Mucus MOD H, Urine Hemoglobin TRACE-INTACT, Urine Glucose NEG, Urine Test NEGATIVE The patient is perc negative, low suspicion for PE based on her clinical presentation. Ultrasound shows splenomegaly however this is stable compared to CT imaging from 2017. Patient's Monospot test is negative. Her symptoms are described as pleuritic, lateral chest, reproducible on physical exam, symptoms have been present for over one week.. The patient is young and healthy, symptoms are not consistent with acute coronary syndrome. Symptoms are likely related to costochondritis versus pleurisy. Patient to begin meloxicam and follow-up with her primary care doctor. No acute distress, vital signs are stable. The patient agrees with the plan of care. The patient was discussed with Dr. Askew who agrees with this plan. Diagnostic Imaging: Viewed by Me: Radiology Read, Ultrasound. Discussed w/RAD: Radiology Read, Ultrasound. Radiology Impression: PATIENT: EDE PARTIDA PRESENT AGE: 32 PATIENT ACCOUNT NO: [id number] : 85 LOCATION: [facility] ORDERING PHYSICIAN: Jud PALMA SERVICE DATE: 01/27/18 EXAM TYPE: US - US-SPLEEN EXAMINATION: US SPLEEN CLINICAL INFORMATION: Left upper quadrant tenderness. Rule out splenomegaly, splenic pathology. COMPARISON: CT scan of the abdomen and pelvis dated 02/16/2017 and 05/23/2016. TECHNIQUE: A limited left upper quadrant ultrasound of the spleen was performed. FINDINGS: The spleen is enlarged, measuring 16.2 cm in maximal diameter as compared to 18.[address] scan from 02/16/2017 and 16.5 on 05/23/2016. No focal splenic mass. No perisplenic collection/hematoma. With color Doppler imaging, normal flow to the splenic arterial and venous structures in the hilum are noted. IMPRESSION: 1. Splenomegaly. Similar findings have been noted previously as discussed above. 2. Spleen otherwise unremarkable. DICTATED BY: Buffy FINNEY,Holly Murray DATE/TIME DICTATED:01/27/181640 FRUIT BUYER:NIDIA DATE/TIME TRANSCRIBED:1640 CONFIDENTIAL, DO NOT COPY WITHOUT APPROPRIATE AUTHORIZATION. < Electronically signed in Other Vendor System> SIGNED BY: Holly Baer MD 01/27/181647 CXR Impression: PATIENT: EDE PARTIDA PRESENT AGE: 32 PATIENT ACCOUNT NO: [id number] : 85 LOCATION: [facility] ORDERING PHYSICIAN: Jud PALMA SERVICE DATE: 01/27/18 EXAM TYPE: RAD - XRY-CHEST XRAY, TWO VIEWS EXAMINATION: XR CHEST CLINICAL INFORMATION: Left-sided pleuritic pain. Rule out pneumonia, effusion. COMPARISON: Chest x-ray dated 09/28/2010. CT scan of the abdomen and pelvis dated 02/16/2017. TECHNIQUE: 2 views of the chest were obtained. FINDINGS: The cardiomediastinal silhouette is within normal limits in size. Eventration of the anterior right hemidiaphragm is again seen. No focal consolidation, effusion or pneumothorax is seen. Mild vertebral spondylosis is seen in the mid thoracic spine. Bony structures are otherwise unremarkable. IMPRESSION: No acute cardiopulmonary process. DICTATED BY: Holly Baer MD DATE/TIME DICTATED:01/27/181637 FRUIT BUYER:NIDIA DATE /TIME TRANSCRIBED:01/27/181637 CONFIDENTIAL, DO NOT COPY WITHOUT APPROPRIATE AUTHORIZATION. <Electronically signed in Other Vendor System> SIGNED BY: Holly Baer MD 01/27/181643 Initial ED EKG: none Departure Departure Disposition: HOME OR SELF CARE Condition: Stable Clinical Impression Primary Impression: Pleuritic pain Referrals: Payton Petty APRN (PCP/Family) Additional Instructions: Take meloxicam as prescribed as needed for pain. Follow-up with you primary care doctor. Return if worsening symptoms or other concerns. Please note that there might be incidental findings in your evaluation that are unrelated to the current emergency department visit. Please notify your primary care doctor about this emergency department visit in order to obtain and review all of the testing performed so that these incidental findings can be monitored as needed. If you had an x-ray performed, please understand that some fractures may not be seen on the initial set of x-rays. If your symptoms persist you might need a repeat set of x-rays to check for such a fracture. If you had a laceration evaluated, please understand that foreign bodies such as glass or wood may not be visible to the naked eye or on plain x-rays. If the wound becomes red, swollen, increasingly more painful or if there is any drainage from the wound, please have it reevaluated by a physician for the possibility of a retained foreign body. If you're unable to follow up as outlined in the discharge instructions please return to the emergency department. Thank you for choosing the [facility] Emergency Department for your care. It was a pleasure to serve you today. Departure Forms: Customer Survey General Discharge Information Prescriptions: Current Visit Scripts Meloxicam (Mobic) 1 TAB PO DAILY PRN pain #15 TAB Critical Care Note Critical Care Note Critical Care Time: non-applicable
--- NOTE | 2018-01-27 16:44 | RADIOLOGY REPORT ---
EXAMINATION: XR CHEST CLINICAL INFORMATION: Left-sided pleuritic pain. Rule out pneumonia, effusion. COMPARISON: Chest x-ray dated 09/28/2010. CT scan of the abdomen and pelvis dated 02/16/2017. TECHNIQUE: 2 views of the chest were obtained. FINDINGS: The cardiomediastinal silhouette is within normal limits in size. Eventration of the anterior right hemidiaphragm is again seen. No focal consolidation, effusion or pneumothorax is seen. Mild vertebral spondylosis is seen in the mid thoracic spine. Bony structures are otherwise unremarkable. IMPRESSION: No acute cardiopulmonary process.
--- NOTE | 2018-01-27 16:48 | ULTRASOUND REPORT ---
EXAMINATION: US SPLEEN CLINICAL INFORMATION: Left upper quadrant tenderness. Rule out splenomegaly, splenic pathology. COMPARISON: CT scan of the abdomen and pelvis dated 02/16/2017 and 05/23/2016. TECHNIQUE: A limited left upper quadrant ultrasound of the spleen was performed. FINDINGS: The spleen is enlarged, measuring 16.2 cm in maximal diameter as compared to 18.[address] scan from 02/16/2017 and 16.5 on 05/23/2016. No focal splenic mass. No perisplenic collection/hematoma. With color Doppler imaging, normal flow to the splenic arterial and venous structures in the hilum are noted. IMPRESSION: 1. Splenomegaly. Similar findings have been noted previously as discussed above. 2. Spleen otherwise unremarkable.
[2018-01-27] MEDS ORDERED: MOBIC15 M1 PO (17:35)
[2018-01-27 17:46] VITALS: BP 136/90
== END 2018-01-27 17:46 ==
LOC: ERH 13:59
DX: R07.81 Pleurodynia (principal)
CPT/HCPCS: 71046; 81001; 81025; 96372; J1885